=== PATIENT | male | born 1950 | race Caucasian/White ===

== ENCOUNTER 2020-11-18 10:00 | Outpatient (CLI) | payer MEDICARE, SELFPAY ==
--- NOTE | 2020-11-18 10:09 | ECG_ITS ---
Measurements Intervals [place] Rate: 81 P: 41 MN: 160 QRS: 46 QRSD: 101 T: 41 QT: 367 QTc: 428 Interpretive Statements SINUS RHYTHM NORMAL ECG Electronically Signed On 11-18-2020 11:39:57 CDT by Gasper Hood D.O.
[2020-11-18 10:43] LABS: Anion Gap 8 mmol/L (8-16); Blood Urea Nitrogen 18 mg/dL (9-20); Calcium 9.1 mg/dL (8.4-10.2); Carbon Dioxide 28 mmol/L (22-30); Chloride 103 mmol/L (98-107); Estimated Glomerular Filt Rate > 60; Glucose 116 mg/dL (65-110); Sodium 139 mmol/L (137-145)
== END 2020-11-18 10:01 | disposition home or self-care (01) ==
LOC: ANHSURGERY 10:02
PROVIDERS: Anesthesiology; PCP Family Medicine; Visit Provider Otolaryngology
DX: Z01.810 Encounter for preprocedural cardiovascular examination (principal); Z01.812 Encounter for preprocedural laboratory examination; I10 Essential (primary) hypertension
CPT/HCPCS: 36415; 80048; 93005

== ENCOUNTER 2020-11-21 00:47 | Day surgery (SDC) | payer MEDICARE, SELFPAY ==
[2020-11-15 15:11] VITALS: BMI 25.7
--- NOTE | 2020-11-18 06:43 | P.HP_ITS ---
History of Present Illness History of Present Illness Consent: Risks, benefits, and alternatives have been discussed and questions answered. Patient agrees to proceed with procedure. Chief complaint: right neck mass Narrative: Zane Ho is a 70 year old male with the posterior right neck mass has been there about 6 months Review of Systems Review of Systems: All systems reviewed & are unremarkable except as noted in HPI and below PMFSH Past Medical History Medical History GERD (gastroesophageal reflux disease) HTN (hypertension) IBS (irritable bowel syndrome) Surgical History Surgical History History of cholecystectomy History of meniscectomy of right knee Family History Family History Mother CLL (chronic lymphocytic leukemia) Hypertension Heart disease Father Hypertension Heart disease Grandparent Heart disease Social History Social History Smoking status: Never smoker Second hand tobacco smoke exposure: No Alcohol intake: current Alcohol use details: 2 DRINKS PER MONTH Substance use: never Substance use type: does not use Gender identity (if verbalized by the patient): Male Spiritual care concerns: No Meds Home Medications and Allergies Home Medications Medication Instructions Recorded Confirmed Type aspirin 81 mg tablet,delayed 81 mg PO HS 01/03/20 11/15/20 History release amlodipine 5 mg-benazepril 40 mg 1 cap PO DAILY #90 cap 06/12/20 11/15/20 Rx capsule pantoprazole 40 mg tablet,delayed 40 mg PO QAM #90 tablet 06/19/20 11/15/20 Rx release hydrochlorothiazide 12.5 mg capsule 12.5 mg PO DAILY #90 cap 08/28/20 11/15/20 Rx cholecalciferol (vitamin D3) 50 mcg PO DAILY 11/15/20 11/15/20 History flaxseed oil 1,000 mg PO BID 11/15/20 11/15/20 History hyoscyamine sulfate 0.375 mg PO BID 11/15/20 11/15/20 History metoprolol succinate 50 mg PO HS 11/15/20 11/15/20 History nortriptyline 25 mg PO HS 11/15/20 11/15/20 History Allergies Allergy/AdvReac Type Severity Reaction Status Date / Time No Known Allergies Allergy Verified 11/15/20 14:45 Exam Narrative: Exam Narrative: of approximately 3 cm posterior right neck mass chest clear heart murmurs abdomen is soft extremities negative Assessment and Plan 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
--- NOTE | 2020-11-20 14:25 | WPDANESEPPF ---
Anes - Initial Pre Proc Eval Procedure: Operation Date: 11/21/20 09:15 Proposed Procedures p Excision Right Neck Mass - Bubba Narvaez MD Date/Time: 11/20/20 14:25 Surgeon: Bubba Narvaez MD Pre Op Diagnosis: right neck mass Patient Data Age: 70 Gender: M Height: 1.83 m Weight: 86.2 kg Allergies Allergy/AdvReac Type Severity Reaction Status Date / Time No Known Allergies Allergy Verified 11/21/20 07:29 Home Medications Medication Instructions Recorded Confirmed Type aspirin 81 mg tablet,delayed 81 mg PO HS 01/03/20 11/21/20 History release amlodipine 5 mg-benazepril 40 mg 1 cap PO DAILY #90 cap 06/12/20 11/21/20 Rx capsule pantoprazole 40 mg tablet,delayed 40 mg PO QAM #90 tablet 06/19/20 11/21/20 Rx release hydrochlorothiazide 12.5 mg capsule 12.5 mg PO DAILY #90 cap 08/28/20 11/21/20 Rx cholecalciferol (vitamin D3) 50 mcg PO DAILY 11/15/20 11/21/20 History flaxseed oil 1,000 mg PO BID 11/15/20 11/21/20 History hyoscyamine sulfate 0.375 mg PO BID 11/15/20 11/21/20 History metoprolol succinate 50 mg PO HS 11/15/20 11/21/20 History nortriptyline 25 mg PO HS 11/15/20 11/21/20 History Patient hx anesthesia problems: post op nausea/vomiting (after cataract surgery) Family hx anesthesia problems: none PMFSH Past Medical History Medical History GERD (gastroesophageal reflux disease) HTN (hypertension) IBS (irritable bowel syndrome) Surgical History Surgical History History of cholecystectomy History of meniscectomy of right knee Family History Family History Mother CLL (chronic lymphocytic leukemia) Hypertension Heart disease Father Hypertension Heart disease Grandparent Heart disease Social History Social History Smoking status: Never smoker Second hand tobacco smoke exposure: No Alcohol intake: current Alcohol use details: 2 DRINKS PER MONTH Substance use: never Substance use type: does not use Living arrangements: with family Gender identity (if verbalized by the patient): Male Spiritual care concerns: No Anes - Eval Final PreProcedure Day of Procedure 11/20/20 14:25 Patient weight: overweight Heart: regular rate and rhythm Lungs: clear to auscultation and normal air movement Airway: Mallampati scale class II Neurological: alert and oriented Last oral intake: >/= 8 hours ASA classification: II Emergent: no Anesthetic plan: proceed Anesthesia type and monitoring: general ETT and standard monitoring Informed Consent: The patient's anesthetic plan and its attendant risks and benefits were discussed with the patient/family/POA. Questions were solicited and answers provided to the satisfaction of the patient/family/POA.
[2020-11-21] VITALS (8 sets, daily range): BP systolic 114–141; BP diastolic 72–95; PULSE 76–86; RESP 14–16; TEMP 35.9–36.5; O2SAT 94–100
--- NOTE | 2020-11-21 06:10 | WPDHPUPDATE1 ---
History and Physical Update Update Date/Time: 11/21/20 06:10 History and Physical has been reviewed, including an updated exam of the patient. There are NO changes in the patient's condition. Risks, benefits, and alternatives have been discussed and questions answered. Patient agrees to proceed with procedure.
[2020-11-21] MEDS: LACTATED RINGERS 1,000 ML 30 ML IV CONT ×2 (07:49→10:54)
[2020-11-21] MEDS: FAMOTIDINE 20 MG/2 ML VIAL IV PUSH (08:21)
[2020-11-21] MEDS: LIDO 1%/EPINEPHRINE/PF 1:200,000 30 ML VIAL XX (10:43)
--- NOTE | 2020-11-21 10:44 | W.PM.PROC2 ---
Procedure Note - Detailed Date of Procedure 11/21/20 Pre-op Diagnosis right neck mass Post-op Diagnosis same Procedure Performed Excision posterior cervical right neck mass Surgeon Bubba Narvaez MD Anesthesia general Description of Procedure patient was prepped and draped fashion anesthesia the head turned to the left posterior cervical neck mass was identified incision was made a right under the subcutaneous tissue with sebum was removed the mass was removed there was a lymph node underneath which was removed with the and closed with 4 0 Vicryl Estimated Blood Loss 0 Drains No Complications No immediate complications Condition stable
--- NOTE | 2020-11-21 11:36 | SUR.PHASEI ---
Bruising to rt eye noted. Patient said it was there pre-op from a recent cataract surgery.
== END 2020-11-21 12:20 | disposition home or self-care (01) ==
PROVIDERS: PCP Family Medicine; Visit Provider Otolaryngology
PROC: (CPT 21552; principal; 2020-11-21 09:15)
DX: M79.89 Other specified soft tissue disorders (principal); I10 Essential (primary) hypertension; K21.9 Gastro-esophageal reflux disease without esophagitis; K58.9 Irritable bowel syndrome, unspecified; Z79.82 Long term (current) use of aspirin
CPT/HCPCS: 21552; 36415; 80048; 88304; 88305; 88312; 88342; 93005; A9270; J0330; J1100; J2405; J2704; J3010; J7120

== ENCOUNTER 2021-04-12 08:51 | Emergency (ER) | payer MEDICARE, SELFPAY ==
[2021-04-12 09:00] VITALS: BP 185/102; PULSE 95; RESP 18; TEMP 36.2; O2SAT 99
--- NOTE | 2021-04-12 09:09 | ED.ABDPAIN ---
HPI - Abdominal Pain General Chief Complaint: Abdominal Pain Stated Complaint: RLQ pain Time Seen by Provider: 04/12/21 09:09 Source: patient Mode of arrival: ambulatory Limitations: no limitations History of Present Illness HPI narrative: Patient presents with right lower quadrant pain started 2 hours prior to arrival to the emergency room suddenly. Patient denies any fever, chills, nausea, vomiting, having similar symptoms. History of cholecystectomy, left inguinal hernia repair, hypertension, hyperlipidemia. Patient denies any recent constipation or lifting or working out. Related Data Home Medications Medication Instructions Recorded Confirmed aspirin 81 mg tablet,delayed 81 mg PO HS 01/03/20 03/24/21 release cholecalciferol (vitamin D3) 50 mcg PO DAILY 11/15/20 03/24/21 flaxseed oil 1,000 mg PO BID 11/15/20 03/24/21 pantoprazole PO 04/12/21 Allergies Allergy/AdvReac Type Severity Reaction Status Date / Time No Known Allergies Allergy Verified 04/12/21 09:16 Review of Systems Review of Systems: CONSTITUTIONAL: Denies fever, chills, or sweats. EYES: Denies visual changes, redness, or discharge. ENT: Denies rhinorrhea, congestion, sore throat, or otalgia. CARDIOVASCULAR: Denies chest pain, palpitations, or edema. RESPIRATORY: Denies cough or dyspnea. GASTROINTESTINAL: Denies abdominal pain, nausea, vomiting, or diarrhea. GENITOURINARY: Denies dysuria or hematuria. SKIN: Denies rash or itching. MUSCULOSKELETAL: Denies back pain, joint pain, or myalgia. NEUROLOGIC: Denies headache, numbness, or weakness. PSYCHIATRIC: Denies anxiety or depression. [facility]LY [facility] Past Medical History Medical History GERD (gastroesophageal reflux disease) HTN (hypertension) IBS (irritable bowel syndrome) Surgical History Surgical History History of bilateral cataract extraction History of cholecystectomy History of meniscectomy of right knee Family History Family History Mother CLL (chronic lymphocytic leukemia) Hypertension Heart disease Father Hypertension Heart disease Grandparent Heart disease Social History Social History Social History: Smoking status: Never smoker Second hand tobacco smoke exposure: No Alcohol intake: current Alcohol use details: 2 DRINKS PER MONTH Substance use: never Substance use type: does not use Additional occupation/education comments: 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 Gender identity (if verbalized by the patient): Male Sexual Orientation (if Verbalized by the Patient): Straight or Heterosexual Spiritual care concerns: No Exam Narrative: General appearance: Well-developed, well-nourished Skin: Normal color Head: Normocephalic, nontraumatic Eyes: Clear conjunctiva ENT: Oropharynx normal, ears normal, nose normal Neck: Supple, nontender Chest and respiratory: Airway patent, no respiratory distress, no accessory muscle use Heart: Regular rate/rhythm Abdomen: Soft, right inguinal hernia, severely tender, bulging. I was able to push it slowly and is reducible Vascular: Normal peripheral pulses, normal capillary refill. Musculoskeletal: Normal range of motion, nontender back Neurologic: Alert and oriented ?3, SAMPLE TAILOR is normal as tested, no gross motor deficit Course Course Emergency Course: Resolved MDM - Abdominal Pain MDM Narrative Medical decision making narrative: Right inguinal hernia, I was able to reduce it in less than 1 minutes, with immediate relief. Teresa
--- NOTE | 2021-04-12 09:10 | PC.NURSE ---
Dr. Hammond at bedside and hernia reduced easily. Pt lying flat.
[2021-04-12 10:10] VITALS: BP 152/93; RESP 78; O2SAT 99
== END 2021-04-12 10:00 | disposition home or self-care (01) ==
PROVIDERS: Emergency Provider Emergency Medicine; PCP Family Medicine
DX: K40.90 Unilateral inguinal hernia, without obstruction or gangrene, not specified as recurrent (principal); Z79.82 Long term (current) use of aspirin; K21.9 Gastro-esophageal reflux disease without esophagitis; I10 Essential (primary) hypertension; K58.9 Irritable bowel syndrome, unspecified; Z98.42 Cataract extraction status, left eye; Z98.41 Cataract extraction status, right eye
CPT/HCPCS: 99281

== ENCOUNTER 2021-05-09 09:44 | Outpatient (CLI) | payer MEDICARE, SELFPAY ==
--- NOTE | 2021-05-09 09:45 | ECG_ITS ---
Measurements Intervals [place] Rate: 96 P: 52 VA: 151 QRS: 48 QRSD: 93 T: 27 QT: 349 QTc: 442 Interpretive Statements SINUS RHYTHM INCOMPLETE RIGHT BUNDLE BRANCH BLOCK BASELINE ARTIFACT- I, II, III, AVR, AVL, AVF BORDERLINE ECG Electronically Signed On 05-09-2021 10:18:04 LAND CHECKER by Gasper Hood D.O.
[2021-05-09 10:05] LABS: Basophils Percent Auto 0.5 % (0.2-1.2); Eosinophils Absolute Auto 0.1 K/mm3 (0-0.3); Eosinophils Percent Auto 0.9 % (0-4.4); Hematocrit 45.2 % (42.0-52.0); Hemoglobin 14.8 g/dL (14.0-18.0); Immature Granulocyte Absolute 0.01 K/mm3 (0.00-0.031); Immature Granulocyte Percent A 0.2 % (0-0.5); Lymphocytes Absolute Auto 1.97 K/mm3 (0.9-3.2); Lymphocytes Percent Auto 30.3 % (18.3-44.2); Mean Corpuscular HGB Conc 32.7 g/dl (32-36); Mean Corpuscular Hemoglobin 29.3 pg (26-34); Mean Corpuscular Volume 89.5 fl (80-100); Mean Platelet Volume 9.2 fl (7.4-10.4); Monocytes Absolute Auto 0.5 K/mm3 (0.1-0.6); Monocytes Percent Auto 8.1 % (2.6-8.5); Neutrophils Absolute Auto 3.9 K/mm3 (1.3-6.7); Platelet Count Result 265 k/mm3 (150-375); Red Blood Count 5.05 M/mm3 (4.6-6.20); Red Cell Distribution Width 12.9 % (11.5-14.5); White Blood Count 6.5 K/mm3 (4.5-10.0)
[2021-05-09 10:20] LABS: Alanine Aminotransferase 25 U/L (4-50); Albumin Level 4.5 g/dL (3.5-5.1); Alkaline Phosphatase 91 U/L (38-126); Anion Gap 11 mmol/L (8-16); Aspartate Amino Transferase 30 U/L (17-59); Blood Urea Nitrogen 22 mg/dL (9-20); Calcium 9.3 mg/dL (8.4-10.2); Carbon Dioxide 29 mmol/L (22-30); Chloride 99 mmol/L (98-107); Estimated Glomerular Filt Rate > 60; Glucose 107 mg/dL (65-110); Sodium 139 mmol/L (137-145)
== END 2021-05-09 09:45 | disposition home or self-care (01) ==
LOC: ANHSURGERY 09:47
PROVIDERS: PCP Family Medicine; Visit Provider Surgery
DX: K40.90 Unilateral inguinal hernia, without obstruction or gangrene, not specified as recurrent (principal); K43.2 Incisional hernia without obstruction or gangrene; I45.10 Unspecified right bundle-branch block
CPT/HCPCS: 36415; 80053; 85025; 93005

== ENCOUNTER 2021-05-12 02:57 | Day surgery (SDC) | payer MEDICARE, SELFPAY ==
[2021-05-08 13:13] VITALS: BMI 25.7
--- NOTE | 2021-05-08 13:23 | PC.NURSE ---
Report to the Outpatient Waiting Room, entrance under the green pavilion located off [facility], at time _1000 on date _05/12/21 . OR Time: _1200 . - You and your visitor will be asked a series of questions to screen for COVID 19 for your protection. - A mask is required within the hospital. - Only one visitor is allowed at this time. Patient visitors will be guided where to wait when not with patient. Preoperative COVID Testing Requirements: No COVID Test needed if: (proof is required; if not received patient will have Rapid Test prior to entry) - Patient has received COVID Vaccine at least 14 days prior to procedure date or - Patient has positive COVID test result within last 90 days of surgery date. COVID Test needed if above criteria is not met If not COVID vaccinated a COVID test must be conducted within 72 hours of surgery and patient is asked to isolate self from time of testing until procedure. You will go to the [facility] Testing [facility] for your COVID testing. The [employer] [facility] is located at the corner of [address] [facility]. You will only be called if COVID results are positive and your surgeon may reschedule your elective surgery date. Patients may have clear liquids (water, carbonated beverages, clear teas, apple juice) until 3 hours prior to surgery with a maximum of 20 ounces. - No food from midnight until time of surgery - Infants may have breast milk until 4 hours before surgery, infant formula 6 hours prior to surgery. - Children will be allowed to drink immediately following surgery. If applicable, please bring a bottle or sippy cup to assist with drinking. Juice, water, soda, and popsicles are readily available. For infants on formula, please bring formula the day of surgery. Pacifiers are allowed. Take the following medications with a SIP of water the morning of surgery: ____HYOSCYAMINE Medications to discontinue per physician __ALL VITAMINS 3 DAYS PRE OP Date to take last dose_05/08/21 Please no make-up, nail vietnamese, hairspray, perfume, deodorant, or body powder the day of surgery. No jewelry (including any body piercings) or valuables the day of surgery, leave them at home. Please take a shower or bath the night before, or the morning of, surgery with an antibacterial soap. Wear comfortable, loose fitting clothing. Children are encouraged to wear pajamas. - Jewelry must be removed prior to entering the operating room. Rings and piercings that are not removed may be cut off. - The hospital will not accept responsibility for valuables. - Please leave all valuables, including medications, at home the day of surgery. HIBICLENS SHOWER MORNING OF SURGERY If you are going home after surgery, a licensed drivers' cash clerk must drive you home. - NO public transportation without another adult. - We recommend that an adult stay with you for 24 hours following discharge. - We also recommend that you do not drive, make important decision, drink alcoholic beverages, or take any drugs that were not prescribed by your health care provider for at least 24 hours after your discharge time. For Pediatric surgeries, we recommend two adults accompany the child home (only one inside the building at this time). Follow any additional instructions given to you from your surgeon. Telephone instructions given to _PATIENT and asked if any additional questions and then verbalized understanding. Patient advised to call surgeon office or pre surgery nurse liaison [phone] if any additional questions.
[2021-05-12] VITALS (12 sets, daily range): BP systolic 138–162; BP diastolic 90–96; PULSE 83–101; RESP 11–16; TEMP 36–36.5; O2SAT 97–100
[2021-05-12] MEDS: ACETAMINOPHEN 500 MG TABLET 1000 MG PO (10:52)
[2021-05-12] MEDS: LACTATED RINGERS 1,000 ML 30 ML IV CONT ×3 (11:06→15:51)
[2021-05-12] MEDS: KETOROLAC 15 MG/ML VIAL (*BKC) IV PUSH (11:13)
--- NOTE | 2021-05-12 11:40 | WPDANESEPPF ---
Anes - Initial Pre Proc Eval Procedure: Operation Date: 05/12/21 12:00 Proposed Procedures p Laparoscopic Right Inguinal Hernia Repair with Mesh, Possible Open - Jaron Soto MD s Incisional Hernia Repair at Umbilicus with Sutures - Jaron Soto MD Date/Time: 05/12/21 11:40 Surgeon: Jaron Soto MD Pre Op Diagnosis: right inguinal hernia, incisional hernia Patient Data Age: 70 Gender: M Height: 1.83 m Weight: 82.5 kg Last Vital Signs Temp 36.0 C L 05/12/21 10:17 Pulse 88 05/12/21 10:17 Resp 16 05/12/21 10:17 BP 160/94 H 05/12/21 10:17 Pulse Ox 98 05/12/21 10:17 Allergies Allergy/AdvReac Type Severity Reaction Status Date / Time No Known Allergies Allergy Verified 05/12/21 10:48 Home Medications Medication Instructions Recorded Confirmed Type amlodipine 5 mg-benazepril 40 mg 1 cap PO DAILY #90 cap 06/12/20 05/12/21 Rx capsule cholecalciferol (vitamin D3) 50 mcg PO DAILY 11/15/20 05/12/21 History flaxseed oil 1,000 mg PO BID 11/15/20 05/12/21 History hyoscyamine sulfate 0.375 mg 0.375 mg PO BID #180 tablet 12/17/20 05/12/21 Rx tablet,extended release,12 hr metoprolol succinate 50 mg 50 mg PO HS #90 tablet 12/17/20 05/12/21 Rx tablet,extended release 24 hr pantoprazole 40 mg tablet,delayed 40 mg PO QAM #90 tablet 12/17/20 05/12/21 Rx release hydrochlorothiazide 12.5 mg capsule 12.5 mg PO DAILY #90 cap 02/25/21 05/12/21 Rx nortriptyline 25 mg capsule 25 mg PO HS #90 cap 02/25/21 05/12/21 Rx Patient hx anesthesia problems: none Family hx anesthesia problems: none Results Review: All pre-operative results and documents have been reviewed as part of the pre-operative evaluation. [facility] Past Medical History Medical History GERD (gastroesophageal reflux disease) HTN (hypertension) IBS (irritable bowel syndrome) Surgical History Surgical History H/O vasectomy History of bilateral cataract extraction History of cholecystectomy History of left inguinal hernia repair History of meniscectomy of right knee Family History Family History Mother CLL (chronic lymphocytic leukemia) Hypertension Heart disease Cerebrovascular accident Father Hypertension Heart disease Grandparent Heart disease Social History Social History Social History: Denies caffeine use Smoking status: Never smoker Second hand tobacco smoke exposure: No Alcohol intake: current Alcohol use details: 2 DRINKS PER MONTH-Beer Substance use: never Substance use type: does not use Living arrangements: with family Additional occupation/education comments: 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 Gender identity (if verbalized by the patient): Male Sexual Orientation (if Verbalized by the Patient): Straight or Heterosexual Spiritual care concerns: No Agree to blood products: Yes Anes - Eval Final PreProcedure Day of Procedure 05/12/21 11:40 Patient weight: overweight Heart: regular rate and rhythm Lungs: clear to auscultation Airway: Mallampati scale class II Neurological: alert and oriented Last oral intake: >/= 8 hours ASA classification: II Emergent: no Anesthesia type and monitoring: general ETT and standard monitoring Results Review: All pre-operative results and documents have been reviewed as part of the pre-operative evaluation. Informed Consent: The patient's anesthetic plan and its attendant risks and benefits were discussed with the patient/family/POA. Questions were solicited and answers provided to the satisfaction of the patient/family/POA.
--- NOTE | 2021-05-12 11:43 | WPDHPUPDATE1 ---
History and Physical Update Update Date/Time: 05/12/21 11:43 History and Physical has been reviewed, including an updated exam of the patient. There are NO changes in the patient's condition. Risks, benefits, and alternatives have been discussed and questions answered. Patient agrees to proceed with procedure.
[2021-05-12] MEDS: ceFAZolin 2 GM/D5W 50 ML 2 GM/50 ML BAG IVPB (12:06)
[2021-05-12] MEDS: BUPIVACAINE/EPINEPHRINE 0.5% 10 ML VIAL 30 ML INFILTRATE (12:51)
--- NOTE | 2021-05-12 14:49 | W.PM.PROC2 ---
Procedure Note - Detailed Date of Procedure 05/12/21 Pre-op Diagnosis 1. right inguinal hernia 2. incisional hernia at the umbilicus Post-op Diagnosis other ( 1. direct right inguinal hernia 2.incisional hernia at the umbilicus) Procedure Performed 1.Totally extraperitoneal laparoscopic right inguinal hernia repair with mesh. 2. Open ventral incisional hernia repair at the umbilicus with sutures Surgeon Jaron Soto MD Floor And Wall Applier Liquid JACEK Roper, OR 1st assist Anesthesia general Indications Bulging and pain in the right groin Visible bulging in the upper portion of the umbilicus under a scar. Findings At the umbilicus and approximately 1 cm fascial defect was found Within the preperitoneal space there was the apparent fairly large direct inguinal hernia just medial to the epigastric vessels. Description of Procedure After appropriate marking of the operative site prior to surgery, the patient was taken to the operating room. After induction of adequate general endotracheal anesthesia by [facility] staff, the patient was carefully prepped and draped in a sterile fashion. A time-out was performed confirming the procedure and site of surgery on the right. Following this, local anesthetic was infiltrated into the umbilical area and a transverse incision was made just below and actually in the umbilicus. This incision extended slightly more to the right than the left so that I could easily find the rectus muscle just to the right of the umbilicus. At this time I also carefully raised a small flap of the umbilical skin over the top of the underlying umbilical hernia and exposed it. We did not our dissect out the hernia sac at this time. I then carefully dissected down to the the anterior rectus sheath on the right and then made a 1 cm vertical slit in the fascia just off the midline. The rectus muscle was retracted to right and then just in front of the posterior rectus sheath, a dissecting balloon was passed onto the pubic bone. After placing slight pressure on the left groin area, this was insufflated with 32 pumps, while watching with the 0 degree laparoscope. It appeared that I was in the proper plane. Following this, the dissecting balloon was removed and replaced by a Lenz cannula with a circular 30 cc conforming balloon. Following this, the 0 degree laparoscope was used to carefully place two 5mm [employer] slim trocars, just to the left of midline. One suprapubic and other one snf between the umbilicus and the pubic bone. Tedious dissection then occurred in the preperitoneal space exposing the Gonzales's ligament, the cord structures, the muscular tissue anteriorly, and the retroperitoneum. This was then able to be dissected back and we could visualize the posterior peritoneum. There did not appear to be an indirect hernia as there was nothing bulging lateral to the epigastric vessels. I did pull about a 3 x 4 cm area of fatty tissue out of the direct space and there was an apparent direct pseudo sac seen. I then dissected up to the level of the umbilicus and it was ready for mesh placement. After carefully confirming all sites and that the mesh would cover the direct space, I carefully rolled the Large 3D Bard mesh and slid this through the 12 mm trocar at the umbilical level down into the preperitoneal space. This unfurled nicely and sat nicely against the right groin structures. It nicely covered all spaces and it went back nicely into the preperitoneal space along the anterior-superior iliac spine. I took a picture of it carefully, which showed that the mesh will cover the preperitoneal groin well, and had come down to the posterior border of the peritoneum. Once this was accomplished, I took the patient out of Trendelenburg position, rotated the patient back even, and then observed using a dissector through the higher 5 mm trocar to keep the mesh pushed down against the anterior and posterior abdominal wall retroperitoneally. The per
[2021-05-12] MEDS: oxyCODONE HCL (*CRX) 5 MG TAB IR PO (16:25)
== END 2021-05-12 18:16 | disposition home or self-care (01) ==
PROVIDERS: PCP Family Medicine; Visit Provider Surgery
PROC: (CPT 49650; principal; 2021-05-12 12:00)
PROC: 0WQF0ZZ Repair Abdominal Wall, Open Approach (ICD-10-PCS; CPT 49505; 2021-05-12 12:00)
DX: K40.90 Unilateral inguinal hernia, without obstruction or gangrene, not specified as recurrent (principal); K43.2 Incisional hernia without obstruction or gangrene; I10 Essential (primary) hypertension; K21.9 Gastro-esophageal reflux disease without esophagitis; K58.9 Irritable bowel syndrome, unspecified
CPT/HCPCS: 49505; 49560; 36415; 86850; 86900; 86901; 88302; 88304; A9270; J0330; J0690; J1100; J1170; J1885; J2250; J2405; J2704; J2710; J3010; J7030; J7120

== ENCOUNTER → 2021-10-21 15:14 | Outpatient (CLI) | payer MEDICARE, SELFPAY ==
--- NOTE | ~2021-10-21 | XR_ITS ---
EXAM: XR lumbar spine 2-3V DATE: 10/21/2021 15:52 HISTORY: M54.50 - Low back pain, unspecified . COMPARISON: None available. FINDINGS: Slightly decreased mineralization. 5 nonrib-bearing lumbar-type vertebral bodies. Pedicles intact. 4 mm anterolisthesis of L4 on L5. Alignment otherwise intact. Vertebral body heights preserve d. Mild disc space narrowing at L3-4. Moderate disc space narrowing at L5-S1. Multilevel lower lumbar facet sclerosis. No fracture or dislocation. IMPRESSION: Grade 1 anterolisthesis of L4 on L5, likely on a degenerative basis. Moderate degenerativ e disc disease at L4-5. Moderate lower lumbar facet arthropathy. Reviewed, dictated and finalized at location K. IMPRESSION: Grade 1 anterolisthesis of L4 on L5, likely on a degenerative basis . Moderate degenerative disc disease at L4-5. Moderate lower lumbar facet arthr opathy.
== END ==
PROVIDERS: PCP Family Medicine; Visit Provider Family Medicine
DX: M54.50 Low back pain, unspecified (principal)
CPT/HCPCS: 72100

== ENCOUNTER 2021-11-20 12:05 | Outpatient (CLI) | payer MEDICARE, SELFPAY ==
--- NOTE | ~2021-11-20 | CT_ITS ---
EXAMINATION: CT abdomen pelvis w con DATE: 11/20/2021 13:18 INDICATION: Generalized abdominal pain. Right lower quadrant abdominal tenderness. TECHNIQUE: Computed tomography (CT) of the abdomen and pelvis was performed with 100 mL Omnipaque 300 intravenous contrast. Automated exposure control and iterative reconstruction technique were employe d. The dose-length product was 462.83 mGy-cm. COMPARISON: None. FINDINGS: The visualized portions of the lung bases demonstrate mild atelectasis. No pleural effusion . The heart size is normal. No pericardial effusion. There are cysts in the liver measuring up to 11 mm. Calcifications in the liver and spleen are consistent with old granulomatous disease. There are c hanges of cholecystectomy. The pancreas and adrenal glands are normal. There are cysts in the kidneys measuring up to 2.5 cm on the right. There is a right inguinal hernia containing fat. There are sotelo ges of left inguinal hernia repair. The appendix is normal. There is a dilated loop of small bowel in the mid abdomen without focal transition point. There are no pathologically enlarged lymph nodes. Th ere is no free intraperitoneal fluid. There is mild thoracolumbar spondylosis. IMPRESSION: 1. Dilated loop of small bowel, likely adynamic ileus. 2. Right inguinal hernia containing fat. Reviewed, dictated and finalized at location A.
[2021-11-20 12:24] LABS: Basophils Percent Auto 0.4 % (0.2-1.2); Eosinophils Absolute Auto 0.1 K/mm3 (0-0.3); Eosinophils Percent Auto 1.6 % (0-4.4); Hematocrit 45.8 % (42.0-52.0); Hemoglobin 14.7 g/dL (14.0-18.0); Immature Granulocyte Absolute 0.01 K/mm3 (0.00-0.031); Immature Granulocyte Percent A 0.2 % (0-0.5); Lymphocytes Absolute Auto 1.37 K/mm3 (0.9-3.2); Lymphocytes Percent Auto 28.2 % (18.3-44.2); Mean Corpuscular HGB Conc 32.1 g/dl (32-36); Mean Corpuscular Hemoglobin 28.4 pg (26-34); Mean Corpuscular Volume 88.6 fl (80-100); Mean Platelet Volume 9.3 fl (7.4-10.4); Monocytes Absolute Auto 0.4 K/mm3 (0.1-0.6); Monocytes Percent Auto 8.2 % (2.6-8.5); Neutrophils Percent Auto 61.4 % (45.5-73.1); Platelet Count Result 250 k/mm3 (150-375); Red Blood Count 5.17 M/mm3 (4.6-6.20); Red Cell Distribution Width 13.2 % (11.5-14.5); White Blood Count 4.9 K/mm3 (4.5-10.0)
[2021-11-20 12:39] LABS: Alanine Aminotransferase 19 U/L (6-50); Albumin Level 4.1 g/dL (3.5-5.1); Alkaline Phosphatase 87 U/L (38-126); Amylase 41 U/L (30-110); Anion Gap 5 mmol/L (8-16); Aspartate Amino Transferase 25 U/L (17-59); Bilirubin,Total 1.3 mg/dL (0.2-1.3); Blood Urea Nitrogen 16 mg/dL (9-20); Calcium 8.7 mg/dL (8.4-10.2); Carbon Dioxide 33 mmol/L (22-30); Chloride 101 mmol/L (98-107); Estimated Glomerular Filt Rate > 60; Glucose 117 mg/dL (65-110); Potassium 3.8 mmol/L (3.4-5.0); Sodium 139 mmol/L (137-145)
[2021-11-20 12:57] LABS: Lipase < 10 U/L (23-300)
== END 2021-11-20 12:06 | disposition home or self-care (01) ==
PROVIDERS: PCP Family Medicine; Visit Provider Physician Assistant
DX: R10.829 Rebound abdominal tenderness, unspecified site (principal); R10.813 Right lower quadrant abdominal tenderness; R10.84 Generalized abdominal pain; K40.90 Unilateral inguinal hernia, without obstruction or gangrene, not specified as recurrent
CPT/HCPCS: 36415; 74177; 80053; 82150; 83690; 85025; Q9967

== ENCOUNTER 2022-03-20 05:16 | Emergency (ER) | payer OTHER, MEDICARE, SELFPAY ==
[2022-03-20 05:17] VITALS: BP 154/107; PULSE 99; RESP 18; TEMP 36.3; O2SAT 100
--- NOTE | 2022-03-20 05:41 | PC.NURSE ---
ERP AT BEDSIDE REPAIRING WOUND AT THIS TIME.
[2022-03-20] MEDS: LIDOCAINE HCL 1% LOCAL INJ 10 ML VIAL INFILTRATE (05:42)
[2022-03-20 05:45] VITALS: BP 168/98; PULSE 90; RESP 18; O2SAT 99
--- NOTE | 2022-03-20 05:54 | ED.WOUNDLAC ---
HPI - Wound/Laceration General Chief Complaint: Wound/Laceration Stated Complaint: Right Eye Source: patient Mode of arrival: ambulatory Limitations: no limitations History of Present Illness HPI narrative: This is a 71-year-old gentleman that this morning tripped and fell causing a laceration to the above eyebrow area proximally 4cm in length and gaping with no loss of consciousness no neurological deficits currently minimal bleeding. Onset (ago): hour(s) Place: work Patient tetanus UTD: No Context: accidental Associated symptoms: none Related Data Home Medications Medication Instructions Recorded Confirmed cholecalciferol (vitamin D3) 50 50 mcg PO DAILY 11/15/20 03/20/22 mcg (2,000 unit) tablet flaxseed oil 1,000 mg capsule 1,000 mg PO BID 11/15/20 03/20/22 Allergies Allergy/AdvReac Type Severity Reaction Status Date / Time No Known Allergies Allergy Verified 03/20/22 05:25 Review of Systems Review of Systems: All systems reviewed & are unremarkable except as noted in HPI and below PMFSH Past Medical History Medical History GERD (gastroesophageal reflux disease) HTN (hypertension) IBS (irritable bowel syndrome) Surgical History Surgical History H/O vasectomy History of bilateral cataract extraction History of cholecystectomy History of inguinal hernia repair 05/12/2021 - 1.Totally extraperitoneal laparoscopic right inguinal hernia repair with mesh. 2. Open ventral incisional hernia repair at the umbilicus with sutures History of left inguinal hernia repair History of meniscectomy of right knee Family History Family History Mother CLL (chronic lymphocytic leukemia) Hypertension Heart disease Cerebrovascular accident Father Hypertension Heart disease Grandparent Heart disease Social History Social History Social History: Denies caffeine use Smoking status: Never smoker Second hand tobacco smoke exposure: No Alcohol intake: current Alcohol use details: 2 DRINKS PER MONTH-Beer Substance use: never Substance use type: does not use Additional occupation/education comments: 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 Gender identity (if verbalized by the patient): Male Sexual Orientation (if Verbalized by the Patient): Straight or Heterosexual Spiritual care concerns: No Agree to blood products: Yes Exam Const: General: healthy appearing Nutritional Appearance: well nourished Orientation/consciousness: patient oriented x3 Limitations: no limitations HENMT: Head: normal to inspection Face/Nose/Sinus: Normal external nose present Face and sinus: normal facial exam Eyes: Conjunctivae: conjunctivae normal Pupils: Equal, round and reactive pupils present EOM: EOMs intact bilaterally Chest: Chest palpation & inspection: normal inspection of the chest Resp: Effort & Inspection: normal respiratory effort Auscultation: clear to auscultation bilaterally Cardio: Rate: regular rate Rhythm: regular rhythm GI: GI Palp: Yes Soft to palpation Auscultation: normal bowel sounds Urinary Catheter: Urinary Catheter: patent and draining Skin: General skin exam: normal color Rashes: no rashes Wounds: wounds noted Neuro: General: patient oriented x3, moves all extremities, no meningeal signs, no focal motor deficits and CN's II-XI intact bilaterally Cranial nerves: Yes Nystagmus not present Speech: normal speech Gait exam (Neuro): Normal gait present Extrem: General: normal to inspection Psych: Mental Status: mental status grossly normal Affect: normal affect Course Course Emergency Course: Patient updated with a tetanus, lidocaine was used to numb the laceration site and sutures placed. Patient tolerated procedure well. Vital Signs Vital signs:
--- NOTE | 2022-03-20 05:57 | PC.NURSE ---
DURING PROCEDURE PT REPORTS HE FEELS LIKE HE IS GOING TO PASS OUT, BECOMES PALE AND DIAPHORETIC. PT REPORTS HIS BP USUALLY DROPS AND HE DOES THIS WITH PROCEDURES. PT NEVER HAD LOC, DID TALK THROUGHOUT THE PROCEDURE. PT BP DID DROP TO 58/42. PT PLACED IN TRENDELENBURG POSITION WITH ICE PACKS AND COOL WASH CLOTHS PLACED. POST PROCEDURE, PT COLOR IS RETURNING TO NORMAL AT THIS TIME. TO MONITOR BP. WOUND IS CLEANED AND DRESSED PER TECH.
[2022-03-20 06:00] VITALS: BP 109/71; PULSE 88; RESP 16; O2SAT 99
[2022-03-20] MEDS: NEOMYCIN/POLYMYXIN/BACITRACIN OINTMENT PACKET 1 PACKET TOPICAL (06:04)
[2022-03-20] MEDS: TETANUS,DIPHTHERIA,AC PERTUSSIS ADULT 0.5 ML (ADACEL) IM (06:04)
[2022-03-20 06:18] VITALS: BP 137/90; PULSE 82; RESP 16; O2SAT 97
[2022-03-20 06:31] VITALS: BP 148/89; PULSE 78; RESP 14; O2SAT 99
== END 2022-03-20 06:35 | disposition home or self-care (01) ==
PROVIDERS: Emergency Provider Emergency Medicine; PCP Family Medicine
DX: S01.111A Laceration without foreign body of right eyelid and periocular area, initial encounter (principal); W01.0XXA Fall on same level from slipping, tripping and stumbling without subsequent striking against object, initial encounter
CPT/HCPCS: 12013; 90471; 90715; 99283

== ENCOUNTER 2024-02-23 13:03 | Outpatient (CLI) | payer MEDICARE, SELFPAY ==
--- NOTE | ~2024-02-23 | CT_ITS ---
CT brain wo con Ordering provider: Hector Fuchs MD History: 73 years Male with . G45.9 - Transient cerebral ischemic attack, unspecified . Comparison: None. Technique: CT of the head without contrast. Radiation reduction technique utilized.The dose-length product was 681 mGy-cm. FINDINGS: BRAIN PARENCHYMA AND CSF SPACES: Mild leukoaraiosis and diffuse cortical atrophy. Mild atheromatous d isease. No midline shift, mass effect or hemorrhage. The brain parenchyma and CSF spaces are otherwi se normal. VISUALIZED PARANASAL SINUSES: Left maxillary sinus disease. MASTOIDS: Well aerated. BONES: The bones appear intact. SOFT TISSUES: Visualized nasopharynx is normal. Superficial soft tissues are normal. IMPRESSION: No acute intracranial findings. Reviewed, dictated and finalized at location A.
--- NOTE | ~2024-02-23 | US_ITS ---
EXAMINATION: US carotid duplex BI DATE: 02/23/2024 13:43 CDT INDICATION: Transient unilateral vision loss TECHNIQUE: Grayscale, color Doppler, and pulsed Doppler images of the cervical carotid arteries were obtained. The degree of vessel stenosis is placed in one of the following categories: normal, <50%, 5 0-69%, >=70% but less than near-occlusion, near-occlusion, or total occlusion. Note that percent sten osis relative to normal distal artery lumen diameter is indirectly measured from velocity measurement s as described by Scott, et al. Radiology 2003; [id number]. COMPARISON: None. FINDINGS: RIGHT: The right common carotid artery (CCA) peak systolic velocity (PSV) is 98.9 cm/s. The right internal c arotid artery (ICA) PSV is 113 cm/s. The right ICA end-diastolic velocity (EDV) is 33 cm/s. The right ICA/CCA PSV ratio is 1.1. The external carotid artery (ECA) PSV is 197 cm/s. There is antegrade flow in the right vertebral artery. No significant intimal thickening or plaque formation is appreciated. LEFT: The left CCA PSV is 115 cm/s. The left ICA PSV is 82 cm/s. The left ICA EDV is 31 cm/s. The left ICA/ CCA PSV ratio is 1.2. The ECA PSV is 140 cm/s. There is antegrade flow in the left vertebral artery. Scattered hard and soft appearing plaque throughout the left internal carotid artery. IMPRESSION: 1. Less than 50% stenosis in the right internal carotid artery. 2. Less than 50% stenosis in the left internal carotid artery, with scattered hard and soft appearing plaque on grayscale evaluation. Reviewed, dictated and finalized at location A. IMPRESSION: 1. Less than 50% stenosis in the right internal carotid artery. 2. Less than 50% stenosis in the left internal carotid artery, with scattered h bere and soft appearing plaque on grayscale evaluation.
== END 2024-02-23 13:04 | disposition home or self-care (01) ==
LOC: ANHIMG 13:03
PROVIDERS: PCP Family Medicine; Visit Provider Family Medicine
DX: G45.9 Transient cerebral ischemic attack, unspecified (principal)
CPT/HCPCS: 70450; 93880